=== PATIENT | female | born 1990 | race Caucasian/White ===

== ENCOUNTER 2019-03-01 13:02 | Emergency (ER) | payer OTHER | END 2019-03-01 15:08 | disposition home or self-care (01) | LOC: FTE 15:08 | DX: H66.92 Otitis media, unspecified, left ear (principal); J02.9 Acute pharyngitis, unspecified | CPT/HCPCS: 99283; Z7502 ==

== ENCOUNTER 2019-03-16 05:48 | Day surgery (SDC) | payer OTHER ==
[2019-03-16] MEDS: LACTATED RINGER'S 1,000 ML IV (07:53)
[2019-03-16] MEDS ORDERED: LIDOCAINE 2% (SDV) 5 ML INJ (08:25)
[2019-03-16] MEDS ORDERED: FENTAnyl 50 MCG/ML VIAL (08:25)
[2019-03-16] MEDS ORDERED: PROPOFOL 20 ML (08:25)
[2019-03-16] MEDS ORDERED: FAMOTIDINE 20 MG INJ (08:45)
[2019-03-16] MEDS ORDERED: DEXAMETHASONE 4 MG/ML 5 ML INJ (08:45)
[2019-03-16] MEDS ORDERED: ONDANSETRON 4 MG INJ (08:45)
[2019-03-16] MEDS ORDERED: METOCLOPRAMIDE 10 MG INJ (08:45)
[2019-03-16] MEDS ORDERED: FENTAnyl 50 MCG/ML VIAL IV ×3 (09:00)
[2019-03-16] MEDS ORDERED: MEPERIDINE 25 MG INJ IV (09:00)
[2019-03-16] MEDS ORDERED: ONDANSETRON 4 MG INJ IV (09:00)
[2019-03-16] MEDS ORDERED: ALBUTEROL 0.083% (NEB) 2.5 MG/3 ML AMP HHN (09:00)
[2019-03-16] MEDS ORDERED: OXYCODONE/ACETAMINOPHEN (5/325) TAB PO ×2 (09:00)
[2019-03-16] MEDS ORDERED: STRONG IODINE 14 ML SOLUTION TOP (09:19)
[2019-03-16] MEDS ORDERED: KETOROLAC 30 MG INJ (09:51)
[2019-03-16] MEDS ORDERED: ACETAMINOPHEN 325 MG TAB PO (10:30)
== END 2019-03-16 11:20 | disposition home or self-care (01) ==
LOC: SDS 05:48
DX: N87.1 Moderate cervical dysplasia (principal)
CPT/HCPCS: 57522; 84702; 86850; 86900; 86901; 88305